=== PATIENT | male | born 1960 | race Caucasian/White ===

== ENCOUNTER 2017-09-12 11:42 | Day surgery (SDC) | payer BC ==
[~2017-09-12] VITALS: Ht 182.9 cm; Wt 124.6 kg
[~2017-09-12 11:42] MED LIST: ACET-1600 PO; BUPIVACAINE/PF 0.5% ONE; IBUP-1484 PO; OMEP40CA6 PO
[2017-09-12 12:38] VITALS: BP 161/108
[2017-09-12] MEDS ORDERED: LACTATED RINGERS 1,000 ML IV SCH (12:43)
[2017-09-12] MEDS ORDERED: LIDOCAINE-MPF 1%, 2ML INFIL ONE (13:00)
[2017-09-12] MEDS ORDERED: FENTANYL PF 250 MCG/5ML ONE (13:36)
[2017-09-12] MEDS ORDERED: MIDAZOLAM 1 MG/ML, 2ML ONE (13:36)
[2017-09-12] MEDS ORDERED: LIDOCAINE-MPF 2% ,5ML ONE (13:45)
[2017-09-12] MEDS ORDERED: NEOSTIGMINE 1 MG/ML, 10ML ONE (13:45)
[2017-09-12] MEDS ORDERED: PROPOFOL 10 MG/ML, 20ML ONE (13:45)
[2017-09-12] MEDS ORDERED: LIDOCAINE 4%, 4 ML SYR/CANN TP ONE (13:45)
[2017-09-12] MEDS ORDERED: ONDANSETRON 2MG/ML, 2ML ONE ×2 (13:45)
[2017-09-12] MEDS ORDERED: CEFAZOLIN 1,000 MG ONE (13:45)
[2017-09-12] MEDS ORDERED: ROCURONIUM 10 MG/ML,10ML ONE (13:45)
[2017-09-12] MEDS ORDERED: SUCCINYLCHOLINE 20 MG/ML, 10ML ONE (13:45)
[2017-09-12] MEDS ORDERED: DEXAMETHASONE 4 MG/ML, 5ML ONE (13:45)
[2017-09-12] MEDS ORDERED: GLYCOPYRROLATE 0.2MG/1ML, 5ML ONE (13:45)
[2017-09-12] MEDS ORDERED: OXYcodone 5 MG/5 ML ORAL.SOL UDC PO PRN (14:30)
[2017-09-12] MEDS ORDERED: PROMETHAZINE 25 MG/ML, 1ML IV PRN (14:30)
[2017-09-12] MEDS ORDERED: ONDANSETRON 2MG/ML, 2ML IVPush PRN (14:30)
[2017-09-12] MEDS ORDERED: HYDROcodone/APAP 7.5-325MG/15ML UDC PO PRN (14:30)
[2017-09-12] MEDS ORDERED: ACETAMINOPHEN 325 MG TABLET PO PRN (14:30)
[2017-09-12] MEDS ORDERED: FENTANYL PF 100 MCG/2ML ONE ×2 (15:17→16:24)
[2017-09-12] MEDS: FENTANYL PF 100 MCG/2ML IV PRN ×2 (16:22→16:31)
[2017-09-12] MEDS ORDERED: HYDROcodone/APAP 7.5-325MG/15ML UDC ONE (16:24)
[2017-09-12] MEDS ORDERED: morphine SULFATE 10 MG/ML, 1ML ONE (16:43)
[2017-09-12] MEDS: morphine SULFATE 10 MG/ML, 1ML IV PRN ×2 (16:44→16:51)
[2017-09-12 18:45] VITALS: BP 121/78
== END 2017-09-12 23:15 | disposition home or self-care (01) ==
LOC: OUT 11:42 → 4NOR 19:06 → OUT 23:15
PROVIDERS: ATTEND Surgery
DX: K40.90 Unilateral inguinal hernia, without obstruction or gangrene, not specified as recurrent (principal); K66.0 Peritoneal adhesions (postprocedural) (postinfection); E66.9 Obesity, unspecified; G47.33 Obstructive sleep apnea (adult) (pediatric); Z68.37 Body mass index [BMI] 37.0-37.9, adult; Z86.711 Personal history of pulmonary embolism; Z87.898 Personal history of other specified conditions
CPT/HCPCS: 49505; C1781; J0330; J0690; J1100; J2250; J2270; J2405; J2704; J2710; J3010; J3490; J7120; S2900

== ENCOUNTER 2019-11-25 13:09 | Day surgery (SDC) | payer BC ==
[~2019-11-25] VITALS: Ht 182.9 cm; Wt 128.0 kg
[~2019-11-25 13:09] MED LIST changes: -BUPIVACAINE/PF 0.5% ONE; +BUPIVACAINE/PF-EPI 0.5% 1:200K ONE; -IBUP-1484 PO; +IBUP-1902 PO; +LIDOCAINE/PF 1%-EPI 1:200K, 30 ML ONE; +LISI-167 PO; +OMEP40CA42 PO; -OMEP40CA6 PO
[2019-11-25 13:52] VITALS: BP 131/84
[2019-11-25] MEDS ORDERED: LACTATED RINGERS 1,000 ML IV SCH (13:56)
[2019-11-25] MEDS ORDERED: CHLORHEXIDINE 15 ML UDC MM STA (13:57)
[2019-11-25] MEDS ORDERED: MIDAZOLAM 1 MG/ML, 2ML ONE (14:29)
[2019-11-25] MEDS ORDERED: FENTANYL PF 100 MCG/2ML ONE ×3 (14:29→15:50)
[2019-11-25] MEDS ORDERED: PROPOFOL 10 MG/ML, 20ML ONE (14:43)
[2019-11-25] MEDS ORDERED: DEXAMETHASONE 4 MG/ML, 1ML ONE (14:43)
[2019-11-25] MEDS ORDERED: SUCCINYLCHOLINE 20 MG/ML, 10ML ONE (14:43)
[2019-11-25] MEDS ORDERED: NEOSTIGMINE 1 MG/ML, 10ML ONE (14:43)
[2019-11-25] MEDS ORDERED: ONDANSETRON 2MG/ML, 2ML ONE (14:43)
[2019-11-25] MEDS ORDERED: GLYCOPYRROLATE 0.2MG/1ML, 5ML ONE (14:43)
[2019-11-25] MEDS ORDERED: ROCURONIUM 10MG/ML,5ML ONE (14:43)
[2019-11-25] MEDS ORDERED: CEFAZOLIN 1,000 MG ONE (14:43)
[2019-11-25] MEDS ORDERED: ALBUTEROL SULFATE 2.5 MG/3 ML NPPB PRN (15:00)
[2019-11-25] MEDS ORDERED: HYDROmorphone 2 MG/ML, 1ML IVPush PRN (15:00)
[2019-11-25] MEDS ORDERED: ACETAMINOPHEN 325 MG TABLET PO PRN (15:00)
[2019-11-25] MEDS ORDERED: FENTANYL PF 100 MCG/2ML IV PRN (15:00)
[2019-11-25] MEDS ORDERED: KETOROLAC 30 MG/1 ML IV PRN (15:00)
[2019-11-25] MEDS ORDERED: LABETALOL 5MG/ML, 20ML IV PRN (15:00)
[2019-11-25] MEDS ORDERED: PROMETHAZINE 25 MG/ML, 1ML IV PRN (15:00)
[2019-11-25] MEDS ORDERED: hydrALAzine 20 MG/ML, 1ML IV PRN (15:00)
[2019-11-25] MEDS ORDERED: OXYcodone 5 MG/5 ML ORAL.SOL UDC PO PRN (15:00)
[2019-11-25] MEDS ORDERED: MEPERIDINE/PF 25MG/0.5ML IVPush PRN (15:00)
[2019-11-25] MEDS ORDERED: DIAZEPAM 5 MG/ML, 2ML IVPush PRN (15:00)
[2019-11-25] MEDS ORDERED: OXYcodone 5 MG/5 ML ORAL.SOL UDC ONE (15:51)
[2019-11-26] MEDS ORDERED: LISINOPRIL 10 MG TABLET PO SCH (09:00)
[2019-11-27] MEDS ORDERED: OMEPRAZOLE 20 MG CAPSULE.DR PO SCH (09:00)
== END 2019-11-25 17:00 | disposition home or self-care (01) ==
LOC: OUT 13:09
PROVIDERS: ATTEND Orthopaedic Surgery
DX: S83.232A Complex tear of medial meniscus, current injury, left knee, initial encounter (principal); Z11.59 Encounter for screening for other viral diseases; S83.281A Other tear of lateral meniscus, current injury, right knee, initial encounter; M11.262 Other chondrocalcinosis, left knee; M22.42 Chondromalacia patellae, left knee; M19.012 Primary osteoarthritis, left shoulder; M75.42 Impingement syndrome of left shoulder; I10 Essential (primary) hypertension; G47.30 Sleep apnea, unspecified; E66.9 Obesity, unspecified; Z79.899 Other long term (current) drug therapy; Z86.718 Personal history of other venous thrombosis and embolism; X58.XXXA Exposure to other specified factors, initial encounter; Y93.89 Activity, other specified; Y92.89 Other specified places as the place of occurrence of the external cause; Y99.8 Other external cause status
CPT/HCPCS: 29880; 93005; J0330; J0690; J1100; J2250; J2405; J2704; J2710; J3010; J3490; J7120; U0001